=== PATIENT | female | born 1975 | race Two or more races ===

== ENCOUNTER 2016-10-23 15:16 | Emergency (ER) | payer SELFPAY ==
[2016-10-23 15:36] VITALS: BMI 28.2
[2016-10-23] MEDS ORDERED: ASPIRIN 81 MG CHEWABLE TABLETS PO ONE (18:01)
--- NOTE | 2016-10-23 18:03 | PDOC ---
History of Present Illness - General Chief Complaint: Chest Pain Stated Complaint: CHEST PAIN (REFERRED) Time Seen by Provider: 10/23/16 16:47 History Source: Patient Exam Limitations: No Limitations - History of Present Illness Initial Comments: 10/23/16 18:04 41-year-old female with no past medical history smoking history or drug use presents with intermittent left-sided chest pain that she describes a pressure worsened with movement radiating to her left arm that she describes as pins and needles. Patient denies history of cardiac workup. Patient also denies associated symptoms such as nausea vomiting diaphoresis, palpitations or dizziness. Patient also denies lower extremity edema, abdominal pain, or rash. Patient states has not seen a doctor for the above and today decided to come to the ER. Patient denies familial cardiac history. Presenting Symptoms: Chest Pain Timing/Duration: reports: intermittent Severity/Quality: reports: moderate, pressure Location: reports: substernal Chest Pain Radiation: reports: arms (left) Prior Chest Pain/Cardiac Workup: reports: No prior chest pain Aspirin Received prior to arrival (Core Measure): Yes: no aspirin today, 81 mg x 2, provided by ED Associated Symptoms: Yes: Chest Pain/pressure Past History - Travel Traveled outside of the country in the last 30 days: No Close contact w/someone who was outside of country & ill: No - Past Medical History Allergies/Adverse Reactions: Allergies Allergy/AdvReac Type Severity Reaction Status Date / Time No Known Allergies Allergy Verified 10/23/16 15:32 Home Medications: Ambulatory Orders Enalapril Maleate 2.5 mg PO DAILY 10/23/16 Ferrous Sulfate 325 mg PO DAILY 10/23/16 HTN: Yes - Immunization History Immunization Up to Date: Yes - Psycho/Social/Smoking Cessation Hx Suicidal Ideation: No Smoking History: Never smoked Have you smoked in the past 12 months: No Information on smoking cessation initiated: No Hx Alcohol Use: No Drug/Substance Use Hx: No Substance Use Type: None Patient Lives Alone: No Lives with/in: spouse/SO Review of Systems - Review of Systems Able to Perform ROS?: Yes Constitutional: No: Symptoms Reported HEENTM: No: Symptoms Reported Respiratory: No: Symptoms reported Cardiac (ROS): Yes: Chest Pain ABD/GI: No: Symptoms Reported : Yes: Symptoms Reported Musculoskeletal: Yes: Symptoms Reported Integumentary: Yes: Symptoms Reported Neurological: Yes: Symptoms reported Endocrine: No: Symptoms Reported Hematologic/Lymphatic: No: Symptoms Reported *Physical Exam - Vital Signs Last Vital Signs Temp Pulse Resp BP Pulse Ox 97.1 F L 88 18 151/85 100 10/23/16 19:15 10/23/16 22:22 10/23/16 22:22 10/23/16 22:22 10/23/16 22:22 - Physical Exam General Appearance: Yes: Nourished, Appropriately Dressed. No: Apparent Distress HEENT: positive: EOMI, LIVIA Neck: positive: Supple Respiratory/Chest: positive: Lungs Clear, Normal Breath Sounds. negative: Chest Tender, Respiratory Distress, Accessory Muscle Use Cardiovascular: positive: Regular Rhythm, Regular Rate. negative: Murmur Gastrointestinal/Abdominal: positive: Soft. negative: Tenderness Extremity: positive: Normal Capillary Refill. negative: Pedal Edema Integumentary: positive: Normal Color, Warm, Moist Neurologic: positive: Motor Strength 5/5 (ambulatory) Heart Score/ECG Review - History History: Slightly suspicious - Electrocardiogram EKG: Normal - Age Age: </= 45 - Risk Factors Based on the list above the patient has:: No risk factors known - Troponin Troponin: </= normal limit - Score Heart Score - Total: 0 - ECG Intrepretation Rhythm: Regular Rhythm (normal sinus rhythm. Rate 75. No acute findings) ED Treatment Course - LABORATORY CBC & Chemistry Diagram: 10/23/16 17:30 10/23/16 17:30 - ADDITIONAL ORDERS Additional order review: Laboratory Results 10/23/16 21:10 Creatine Kinase 68 Troponin I < 0.02 10/23/16 17:30 RBC 4.79 MCV 75.7 L MCHC 31.6 L RDW 18.1 H MPV 9.0 Neutrophils % 72.1 Lymphocytes % 22.3 Monocytes % 4.5 Eosinophils % 0.5 Basophils % 0.6 - RADIOLOGY Radiology Studies Ordered: Category Date Time Status CHEST X-RAY PORTABLE* [RAD] Stat Radiology 10/23/16 17:32 Completed - Medications Given in the ED: ED Medications Discontinued Medications Generic Name Dose Route Start Last Admin Trade Name Freq PRN Reason Stop Dose Admin Aspirin 162 mg 10/23/16 18:01 10/23/16 18:24 Asa - PO 10/23/16 18:02 162 mg ONCE ONE Administration Medical Decision Making - Medical Decision Making 10/23/16 18:05 Patient here for episodic chest pain worsened with movement. Patient had no acute findings on exam and EKG was within normal limits. Patient was ordered for cardiac workup including to aspirin and chest x-ray. Heart score 0. 10/23/16 18:42 Laboratory Tests 10/23/16 17:30 WBC 13.3 H Hgb 11.4 MCV 75.7 L MCH 23.9 L MCHC 31.6 L RDW 18.1 H *DC/Admit/Observation/Transfer Diagnosis at time of Disposition: Chest pain - Referrals Referrals: Lacie Mantilla NP [Primary Care Provider] - Dejuan Dubose MD [Staff Physician] - - Patient Instructions Printed Discharge Instructions: DI for Chest Pain
[2016-10-23 18:19] LABS: BASOPHIL 0.6 % (0-2.0); EOSINOPHIL 0.5 % (0-4.5); MCH 23.9 pg (25.7-33.7); MCHC 31.6 g/dl (32.0-36.0); MEAN CELL VOLUME 75.7 fl (80-96); NEUTROPHILS 72.1 % (42.8-82.8); PLATELET COUNT 339 K/MM3 (134-434); RDW 18.1 % (11.6-15.6); WHITE BLOOD COUNT 13.3 K/mm3 (4.0-10.0)
[2016-10-23] MEDS ORDERED: ASPIRIN 81 MG CHEWABLE TABLETS ONE (18:20)
[2016-10-23 18:54] LABS: URINE APPEARANCE SLCLOUDY; URINE BILIRUBIN NEGATIVE (NEGATIVE); URINE BLOOD 1+ (NEGATIVE); URINE COLOR LTYELLOW; URINE GLUCOSE (UA) NEGATIVE (NEGATIVE); URINE KETONE TRACE (NEGATIVE); URINE LEUK ESTERASE NEGATIVE (NEGATIVE); URINE NITRITE NEGATIVE (NEGATIVE); URINE PROTEIN NEGATIVE (NEGATIVE); URINE UROBILINOGEN NEGATIVE mg/dL (0.2-1.0)
[2016-10-23 19:13] LABS: ALBUMIN 4.2 g/dl (3.4-5.0); ANION GAP 11 (8-16); CO2 24 mmol/L (21-32); CREATININE 0.4 mg/dL (0.55-1.02); GLUCOSE,RANDOM 84 mg/dL (74-106); SGOT/AST 21 U/L (15-37); SGPT/ALT 31 U/L (12-78)
--- NOTE | 2016-10-23 19:15 | PDOC ---
*Physical Exam - Vital Signs Last Vital Signs Temp Pulse Resp BP Pulse Ox 98.1 F 71 16 149/87 100 10/23/16 15:32 10/23/16 15:32 10/23/16 15:32 10/23/16 15:32 10/23/16 15:32 ED Treatment Course - LABORATORY CBC & Chemistry Diagram: 10/23/16 17:30 10/23/16 17:30 - ADDITIONAL ORDERS Additional order review: 10/23/16 17:30 RBC 4.79 MCV 75.7 L MCHC 31.6 L RDW 18.1 H MPV 9.0 Neutrophils % 72.1 Lymphocytes % 22.3 Monocytes % 4.5 Eosinophils % 0.5 Basophils % 0.6 - Medications Given in the ED: ED Medications Discontinued Medications Generic Name Dose Route Start Last Admin Trade Name Freq PRN Reason Stop Dose Admin Aspirin 162 mg 10/23/16 18:01 10/23/16 18:24 Asa - PO 10/23/16 18:02 162 mg ONCE ONE Administration Medical Decision Making - Medical Decision Making Agree with [employer]'s evaluation, assessment, and plan. 41 F with atypical chest pain. HEART score 0 with normal EKG. - Serial troponins for ACS r/o - Cardiology f/u *DC/Admit/Observation/Transfer Diagnosis at time of Disposition: Chest pain Qualifiers: Chest pain type: unspecified Qualified Code(s): R07.9 - Chest pain, unspecified - Referrals Referrals: Lacie Mantilla NP [Primary Care Provider] - Dejuan Dubose MD [Staff Physician] - - Patient Instructions Printed Discharge Instructions: DI for Chest Pain
[2016-10-23 19:17] LABS: ALK PHOS 146 U/L (45-117); BILIRUBIN,TOTAL 0.4 mg/dL (0.2-1.0); CPK 77 IU/L (26-192); TOT PROT 8.6 g/dl (6.4-8.2); TROPONIN I < 0.02 ng/ml (0.00-0.05)
[2016-10-23 19:20] LABS: URINE MUCUS RARE; URINE RBC 4 /hpf (0-3); URINE WBC 1 /hpf (3-5)
[2016-10-23 19:32] VITALS: TEMP 97.1
[2016-10-23 22:00] LABS: CPK 68 IU/L (26-192); TROPONIN I < 0.02 ng/ml (0.00-0.05)
--- NOTE | 2016-10-23 22:05 | PDOC ---
*Physical Exam - Vital Signs Last Vital Signs Temp Pulse Resp BP Pulse Ox 97.1 F L 62 18 119/71 100 10/23/16 19:15 10/23/16 19:15 10/23/16 19:15 10/23/16 19:15 10/23/16 19:15 ED Treatment Course - LABORATORY CBC & Chemistry Diagram: 10/23/16 17:30 10/23/16 17:30 - ADDITIONAL ORDERS Additional order review: Laboratory Results 10/23/16 10/23/16 10/23/16 21:10 18:45 17:30 Sodium 141 Potassium 3.6 Chloride 106 Carbon Dioxide 24 Anion Gap 11 BUN 8 Creatinine 0.4 L Creat Clearance w eGFR > 60 Random Glucose 84 Calcium 9.0 Total Bilirubin 0.4 AST 21 ALT 31 Alkaline Phosphatase 146 H Creatine Kinase 68 77 Troponin I < 0.02 < 0.02 Total Protein 8.6 H Albumin 4.2 Urine Color Ltyellow Urine Appearance Slcloudy Urine pH 6.0 Urine Protein Negative Urine Glucose (UA) Negative Urine Ketones Trace H Urine Blood 1+ H Urine Nitrite Negative Urine Bilirubin Negative Urine Urobilinogen Negative Ur Leukocyte Esterase Negative Urine RBC 4 Urine WBC 1 Ur Epithelial Cells Few Urine Mucus Rare Urine HCG, Qual Negative 10/23/16 17:30 RBC 4.79 MCV 75.7 L MCHC 31.6 L RDW 18.1 H MPV 9.0 Neutrophils % 72.1 Lymphocytes % 22.3 Monocytes % 4.5 Eosinophils % 0.5 Basophils % 0.6 - Medications Given in the ED: ED Medications Discontinued Medications Generic Name Dose Route Start Last Admin Trade Name Veronique PRN Reason Stop Dose Admin Aspirin 162 mg 10/23/16 18:01 10/23/16 18:24 Asa - PO 10/23/16 18:02 162 mg ONCE ONE Administration *DC/Admit/Observation/Transfer Diagnosis at time of Disposition: Chest pain Qualifiers: Chest pain type: unspecified Qualified Code(s): R07.9 - Chest pain, unspecified - Discharge Dispostion Disposition: HOME Condition at time of disposition: Stable Admit: No - Referrals Referrals: Lacie Mantilla NP [Primary Care Provider] - Dejuan Dubose MD [Staff Physician] - - Patient Instructions Printed Discharge Instructions: DI for Chest Pain
[2016-10-23 22:23] VITALS: BP 151/85; PULSE 88
--- NOTE | 2016-10-24 07:49 | PDOC ---
*Physical Exam - Vital Signs Last Vital Signs Temp Pulse Resp BP Pulse Ox 97.1 F L 88 18 151/85 100 10/23/16 19:15 10/23/16 22:22 10/23/16 22:22 10/23/16 22:22 10/23/16 22:22 ED Treatment Course - LABORATORY CBC & Chemistry Diagram: 10/23/16 17:30 10/23/16 17:30 - ADDITIONAL ORDERS Additional order review: Laboratory Results 10/23/16 10/23/16 21:10 18:45 Creatine Kinase 68 Troponin I < 0.02 Urine Color Ltyellow Urine Appearance Slcloudy Urine pH 6.0 Urine Protein Negative Urine Glucose (UA) Negative Urine Ketones Trace H Urine Blood 1+ H Urine Nitrite Negative Urine Bilirubin Negative Urine Urobilinogen Negative Ur Leukocyte Esterase Negative Urine RBC 4 Urine WBC 1 Ur Epithelial Cells Few Urine Mucus Rare Urine HCG, Qual Negative 10/23/16 17:30 RBC 4.79 MCV 75.7 L MCHC 31.6 L RDW 18.1 H MPV 9.0 Neutrophils % 72.1 Lymphocytes % 22.3 Monocytes % 4.5 Eosinophils % 0.5 Basophils % 0.6 - Medications Given in the ED: ED Medications Discontinued Medications Generic Name Dose Route Start Last Admin Trade Name Freq PRN Reason Stop Dose Admin Aspirin 162 mg 10/23/16 18:01 10/23/16 18:24 Asa - PO 10/23/16 18:02 162 mg ONCE ONE Administration Medical Decision Making - Medical Decision Making 10/24/16 07:48 I had received a phone call from Dr. Carlos regarding a potential irregularlity on the chest xray. This will need to be pursued with a CT scan of the chest. I had phone called and talked to the patient. I advised the patient of the findings and that she should return to the ER immediately for a CT scan. The patient states that she will get dressed and come over to the ER as soon as possible. *DC/Admit/Observation/Transfer Diagnosis at time of Disposition: Chest pain Qualifiers: Chest pain type: unspecified Qualified Code(s): R07.9 - Chest pain, unspecified - Referrals Referrals: Lacie Mantilla NP [Primary Care Provider] - Dejuan Dubose MD [Staff Physician] - - Patient Instructions Printed Discharge Instructions: DI for Chest Pain - Post Discharge Activity
--- NOTE | 2016-10-24 09:04 | EKG ---
Test Reason : Blood Pressure : / mmHG Vent. Rate : 075 BPM Atrial Rate : 075 BPM P-R Int : 132 ms QRS Dur : 084 ms QT Int : 384 ms P-R-T Axes : 035 -03 014 degrees QTc Int : 428 ms NORMAL SINUS RHYTHM NONSPECIFIC T WAVE ABNORMALITY NO PREVIOUS ECGS AVAILABLE Confirmed by EVANGELINA VAZQUEZ MD ([id number]) on 10/24/2016 9:04:01 AM Referred By: Confirmed By:EVANGELINA VAZQUEZ MD
== END 2016-10-23 22:23 | disposition home or self-care (01) ==
LOC: JER 15:16
DX: R07.9 Chest pain, unspecified (principal)
CPT/HCPCS: 36415; 71010-TC; 80053; 81003; 81015; 84484; 84703; 85025; 93005; 93010; 99283-25

== ENCOUNTER 2016-10-24 09:48 | Emergency (ER) | payer SELFPAY ==
[2016-10-24 09:58] VITALS: BP 128/79; PULSE 71; TEMP 98.2; BMI 28.0
--- NOTE | 2016-10-24 10:03 | PDOC ---
History of Present Illness - General Chief Complaint: Pain Stated Complaint: REVISIT Time Seen by Provider: 10/24/16 10:03 History Source: Patient Exam Limitations: No Limitations - History of Present Illness Initial Comments: 10/24/16 12:04 Patient is a 41-year-old female who was seen in the emergency department yesterday who presents to fast-track today for further testing. Patient had a chest x-ray done yesterday in this facility and the radiologist read the x-ray as a potential mass in the lung. They are requesting follow-up testing. Patient presents for CT scan of chest. Denies shortness of breath, fevers, chills, cough , hemoptysis, chest pain and syncope. Past History - Travel Traveled outside of the country in the last 30 days: No Close contact w/someone who was outside of country & ill: No - Past Medical History Allergies/Adverse Reactions: Allergies Allergy/AdvReac Type Severity Reaction Status Date / Time No Known Allergies Allergy Verified 10/24/16 09:58 Home Medications: Ambulatory Orders Enalapril Maleate 2.5 mg PO DAILY 10/23/16 Ferrous Sulfate 325 mg PO DAILY 10/23/16 HTN: Yes - Immunization History Immunization Up to Date: Yes - Psycho/Social/Smoking Cessation Hx Suicidal Ideation: No Smoking History: Never smoked Have you smoked in the past 12 months: No Information on smoking cessation initiated: No Hx Alcohol Use: No Drug/Substance Use Hx: No Substance Use Type: None Review of Systems - Review of Systems Able to Perform ROS?: Yes Is the patient limited Occitan proficient: No Constitutional: No: Chills, Fever, Malaise, Weakness Respiratory: No: Cough, Shortness of Breath, Wheezing Cardiac (ROS): No: Chest Pain, Lightheadedness, Palpitations, Syncope, Chest Tightness ABD/GI: No: Diarrhea, Nausea, Vomiting All Other Systems: Reviewed and Negative *Physical Exam - Vital Signs Last Vital Signs Temp Pulse Resp BP Pulse Ox 98.2 F 71 18 128/79 100 10/24/16 09:56 10/24/16 09:56 10/24/16 09:56 10/24/16 09:56 10/24/16 09:56 - Physical Exam Comments: 10/24/16 12:05 GENERAL: The patient is awake, alert, and fully oriented, in no acute distress. HEAD: Normal with no signs of trauma. EYES: Pupils equal, round and reactive to light, extraocular movements intact, sclera anicteric, conjunctiva clear. CV: RRR, S1S2 present, No M/R/G. LUNGS: Equal B/L chest rise. Equal B/L clear breath sounds with good aeration to the bases. EXTREMITIES: Normal range of motion, no edema. NEUROLOGICAL: Normal speech, normal gait. PSYCH: Normal mood, normal affect. SKIN: Warm, Dry, normal turgor, no rashes or lesions noted. Medical Decision Making - Medical Decision Making 10/24/16 12:07 Patient is a 41-year-old female who was seen in the emergency department yesterday who presents to fast-track today for further testing. Patient had a chest x-ray done yesterday in this facility and the radiologist read the x-ray as a potential mass in the lung. We will order a noncontrast CT of chest at this time. Patient has no complaints. 1. CT chest 2. reevaluate 10/24/16 14:[address]: No mass identified, fat pad surrounding the heart. No evidence of acute cardiopulmonary disease. Will discharge at this time. The size and shape of the fat pad on CT does correlate to the CXR. Pt. states she is feeling well and was made aware of CT results. Pt. feels comfortable with discharge at this time and conveys understanding of test results. *DC/Admit/Observation/Transfer Diagnosis at time of Disposition: Fat pad - Discharge Dispostion Disposition: HOME Condition at time of disposition: Good Admit: No - Referrals Referrals: Harinder Keith MD [Staff Physician] - - Patient Instructions Additional Instructions: Your scan showed a normal variant. It is called a fat pad around the heart. Follow up with your primary care doctor and keep all of your follow up appointments as scheduled. Return to the ED if you have worsening pain ,shortness of breath, chest pain, or any changes in your symptoms. Dukes exploracin mostr jesse variante normal. Se llama jesse almohadilla de grasa alrededor del corazn. Seguimiento con dukes mdico de atencin primaria y mantener todas adithya citas de seguimiento segn lo programado. Vuelva a la [place] si tiene empeoramiento del dolor, dificultad para respirar, dolor en el pecho o cualquier cambio en adithya sntomas. - Post Discharge Activity Work/School Note: Back to Work
== END 2016-10-24 14:20 | disposition home or self-care (01) ==
LOC: JERFT 09:48
DX: E65 Localized adiposity (principal); I10 Essential (primary) hypertension
CPT/HCPCS: 71250-TC; 84703; 99281-25

== ENCOUNTER 2020-02-17 15:14 | Emergency (ER) | payer OTHER ==
[2020-02-17 15:25] VITALS: BMI 34.4
[2020-02-17] MEDS ORDERED: LIDOCAINE 5% TOPICAL PATCH TP ONE (16:55)
[2020-02-17] MEDS ORDERED: LIDOCAINE 5% TOPICAL PATCH ONE (17:21)
[2020-02-17 17:25] LABS: BASO % 0.3 % (0-2.0); EOS % 0.9 % (0-4.5); HEMATOCRIT 30.5 % (32.4-45.2); HEMOGLOBIN 9.5 GM/dL (10.7-15.3); LYMPH % 17.4 % (8-40); MCH 21.9 pg (25.7-33.7); MCHC 31.1 g/dl (32.0-36.0); MEAN CELL VOLUME 70.3 fl (80-96); MEAN PLT VOLUME 8.5 fl (7.5-11.1); MONO % 5.2 % (3.8-10.2); NEUT % 76.2 % (42.8-82.8); PLATELET COUNT 365 K/MM3 (134-434); RBC 4.34 M/mm3 (3.60-5.2); RDW 18.2 % (11.6-15.6); WHITE BLOOD COUNT 10.4 K/mm3 (4.0-10.0)
[2020-02-17 17:34] LABS: INR 1.02 (0.83-1.09); PROTHROMBIN TIME (PATIENT) 12.5 SEC (9.7-13.0)
[2020-02-17 17:37] LABS: ACTIVATED PTT 24.9 SECONDS (25.2-36.5)
[2020-02-17 17:44] LABS: CHLORIDE 106 mmol/L (98-107); POTASSIUM 3.5 mmol/L (3.5-5.1); SODIUM 137 mmol/L (136-145)
[2020-02-17 17:45] LABS: CALCIUM 8.8 mg/dL (8.5-10.1)
[2020-02-17 17:46] LABS: ALBUMIN 3.9 g/dl (3.4-5.0); ANION GAP 4 MMOL/L (8-16); BLOOD UREA NITROGEN 7.8 mg/dL (7-18); CO2 28 mmol/L (21-32); GLUCOSE,RANDOM 125 mg/dL (74-106)
[2020-02-17 17:49] LABS: CREATININE 0.7 mg/dL (0.55-1.3); SGOT/AST 20 U/L (15-37)
[2020-02-17 17:51] LABS: BILIRUBIN,TOTAL 0.3 mg/dL (0.2-1); TOT PROT 8.5 g/dl (6.4-8.2)
[2020-02-17 17:52] LABS: ALK PHOS 141 U/L (45-117)
[2020-02-17 17:53] LABS: SGPT/ALT 25 U/L (13-61)
[2020-02-17 18:37] LABS: ANISOCYTOSIS 2+; OVALOCYTE 1+; TARGET CELLS 1+
[2020-02-17 19:53] VITALS: BP 138/88; PULSE 62; TEMP 97.5
[2020-02-18] MEDS ORDERED: LIDOCAINE PATCH REMOVAL MC SCH (05:00)
== END 2020-02-17 20:39 | disposition home or self-care (01) ==
LOC: JER 15:14
DX: R07.9 Chest pain, unspecified (principal); R06.00 Dyspnea, unspecified
CPT/HCPCS: 36415; 71046-TC-FY; 80053; 82550; 84484; 84703; 85025; 85610; 85730; 93005; 93010; 99285-25

== ENCOUNTER 2022-06-03 13:14 | Day surgery (SDC) | payer OTHER ==
[~2022-06-03 13:14] MED LIST: IRON SUCROSE INJECTION 200 MG in SODIUM CHLORIDE 100 ML IVPB ONE
[2022-06-03 13:50] VITALS: RESP 18; TEMP 98.5
[2022-06-03 14:24] VITALS: BP 144/84; PULSE 81
== END 2022-06-03 14:30 | disposition home or self-care (01) ==
LOC: JONCNONCHE 13:14
PROVIDERS: ATTEND Internal Medicine Hematology & Oncology
PROC: 3E033GC Introduction of Other Therapeutic Substance into Peripheral Vein, Percutaneous Approach (ICD-10-PCS; principal; 2022-06-03)
DX: D50.9 Iron deficiency anemia, unspecified (principal)
CPT/HCPCS: 96365; J1756

== ENCOUNTER 2022-06-10 13:17 | Day surgery (SDC) | payer OTHER ==
[2022-06-10 16:56] VITALS: BP 142/45; PULSE 64; RESP 18; TEMP 97.9
== END 2022-06-10 15:00 | disposition home or self-care (01) ==
LOC: JONCNONCHE 13:17
PROVIDERS: ATTEND Internal Medicine Hematology & Oncology
PROC: 3E033GC Introduction of Other Therapeutic Substance into Peripheral Vein, Percutaneous Approach (ICD-10-PCS; principal; 2022-06-10)
DX: D50.9 Iron deficiency anemia, unspecified (principal)
CPT/HCPCS: 96365; J1756

== ENCOUNTER 2022-06-17 14:03 | Day surgery (SDC) | payer OTHER ==
[2022-06-17 15:52] VITALS: BP 152/82; PULSE 70; RESP 18; TEMP 97.9
== END 2022-06-17 15:20 | disposition home or self-care (01) ==
LOC: JONCNONCHE 14:03
PROVIDERS: ATTEND Internal Medicine Hematology & Oncology
PROC: 3E033GC Introduction of Other Therapeutic Substance into Peripheral Vein, Percutaneous Approach (ICD-10-PCS; principal; 2022-06-17)
DX: D50.9 Iron deficiency anemia, unspecified (principal)
CPT/HCPCS: 96365; J1756

== ENCOUNTER 2022-06-24 13:35 | Day surgery (SDC) | payer OTHER ==
[2022-06-24 17:25] VITALS: BP 154/78; PULSE 57; RESP 18; TEMP 98.5
== END 2022-06-24 14:50 | disposition home or self-care (01) ==
LOC: JONCNONCHE 13:35 → J7W 13:56 → JONCNONCHE 14:50
PROVIDERS: ATTEND Internal Medicine Hematology & Oncology
PROC: 3E033GC Introduction of Other Therapeutic Substance into Peripheral Vein, Percutaneous Approach (ICD-10-PCS; principal; 2022-06-24)
DX: D50.9 Iron deficiency anemia, unspecified (principal)
CPT/HCPCS: 96365; J1756

== ENCOUNTER 2022-07-01 13:38 | Day surgery (SDC) | payer OTHER ==
[2022-07-01 14:52] VITALS: PULSE 71; RESP 18; TEMP 98.2
[2022-07-01 14:53] VITALS: BP 135/71
== END 2022-07-01 15:00 | disposition home or self-care (01) ==
LOC: JONCNONCHE 13:38 → J7W 13:39 → JONCNONCHE 15:00
PROVIDERS: ATTEND Internal Medicine Hematology & Oncology
PROC: 3E033GC Introduction of Other Therapeutic Substance into Peripheral Vein, Percutaneous Approach (ICD-10-PCS; principal; 2022-07-01)
DX: D50.9 Iron deficiency anemia, unspecified (principal)
CPT/HCPCS: 96365; J1756